=== PATIENT | female | born 1950 | race Two or more races ===

== ENCOUNTER → 2018-05-25 | Outpatient (CLI) | payer OTHER | END | disposition home or self-care (01) | LOC: RAD 501 13:36 | DX: M25.541 Pain in joints of right hand (principal); M25.542 Pain in joints of left hand ==

== ENCOUNTER 2018-07-13 09:57 | Outpatient (CLI) | payer OTHER | END 2018-07-13 10:06 | disposition home or self-care (01) | LOC: RX STUDY 09:57 | DX: K29.70 Gastritis, unspecified, without bleeding (principal) ==

== ENCOUNTER 2023-12-09 09:03 | Outpatient (CLI) | payer OTHER | END 2023-12-09 09:08 | disposition home or self-care (01) | LOC: RAD 09:03 | PROVIDERS: ATTEND Physical Medicine & Rehabilitation | DX: M25.511 Pain in right shoulder (principal) ==

== ENCOUNTER 2024-06-15 09:29 | Outpatient (CLI) | payer OTHER | END 2024-06-15 09:33 | disposition home or self-care (01) | LOC: RAD 09:29 | PROVIDERS: ATTEND Family Medicine | DX: M54.50 Low back pain, unspecified (principal); M54.6 Pain in thoracic spine ==

== ENCOUNTER 2024-11-22 09:15 | Outpatient (CLI) | payer OTHER | END 2024-11-22 09:17 | disposition home or self-care (01) | LOC: RAD 09:15 | PROVIDERS: ATTEND Family Medicine | DX: M25.561 Pain in right knee (principal) ==